=== PATIENT | female | born 1930 | race African-American/Black ===

== ENCOUNTER 2016-09-29 18:42 | Inpatient (IN) | payer OTHER ==
[~2016-09-29] VITALS: Ht 162.6 cm; Wt 88.0 kg
[~2016-09-29 18:42] MED LIST: ALLOPURINOL 30300 M2 PO; ATIVAN0.5 MG PO; AUGMENTIN 875875 MG PO; CARVEDILOL12.5 MG PO; COREG6.25 MG PO; ENOXAPARIN40 MG/0.1 SUBQ; HYDRALAZINE 10M10 MG PO; MAGOX 400400 MG PO; MS CONTIN15 MG PO; NEURONTIN 300300 M1 PO; NORCO 10-325 T1 EACH PO; PAIN RELIEVER500 M3 PO; PEPCID20 MG PO; SENNA8.6 MG; SYSTANE 0.3-0.1 EACH; TAMIFLU30 MG PO; TRAZODONE HCL50 MG PO; VITAMIN D250000 UNIT
[2016-09-29 18:43] VITALS: BP 228/107
[2016-09-29 19:55] LABS: ABSOLUTE NEUTROPHILS 4.4 thou/uL (1.4-8.2); BASOPHILS 1.3 % (0.0-2.0); EOSINOPHILS 0.8 % (0.0-3.0); HEMOGLOBIN 12.9 gm/dL (12.0-15.0); LYMPHOCYTES 13.8 % (24.0-44.0); MCH 31.4 pg (26.0-34.0); MCHC 33.9 g/dL (28.0-37.0); MCV 92.6 fL (80.0-100.0); MONOCYTES 7.3 % (1.0-8.0); PLATELET COUNT 224 thou/uL (150-400); POLYS 76.8 % (36.0-66.0); RDW 14.3 % (10.5-14.5); WBC 5.7 thou/uL (4.0-11.0)
[2016-09-29 19:59] LABS: MANUAL DIFF NO
[2016-09-29 20:07] LABS: CALCIUM 8.9 mg/dL (8.5-10.1); CREATININE 0.8 mg/dL (0.6-1.3); POTASSIUM 3.4 mmol/L (3.5-5.1)
[2016-09-29 20:11] LABS: ALBUMIN 3.1 g/dL (3.4-5.0); TOTAL BILIRUBIN 1.6 mg/dL (<0.1-1.0)
[2016-09-29 22:34] VITALS: BP 186/93
[2016-09-29 23:39] VITALS: BP 185/67
[2016-09-30 03:45] VITALS: BP 134/75
[2016-09-30 06:06] LABS: URINE BILIRUBIN NEGATIVE (Negative); URINE BLOOD NEGATIVE (Negative); URINE COLOR YELLOW; URINE GLUCOSE-RANDOM* NEGATIVE (Negative); URINE KETONES NEGATIVE (Negative); URINE NITRITE NEGATIVE (Negative); URINE PROTEIN (DIPSTICK) NEGATIVE (Negative); URINE SPECIFIC GRAVITY <= 1.005 (1.003-1.035); URINE UROBILINOGEN 0.2 E.U./dl (0.2-1.0)
[2016-09-30 06:06] LABS: ABSOLUTE NEUTROPHILS 4.9 thou/uL (1.4-8.2); BASOPHILS 0.9 % (0.0-2.0); EOSINOPHILS 0.6 % (0.0-3.0); HEMATOCRIT 35.6 % (37.0-47.0); HEMOGLOBIN 11.9 gm/dL (12.0-15.0); LYMPHOCYTES 19.1 % (24.0-44.0); MCH 31.3 pg (26.0-34.0); MCHC 33.5 g/dL (28.0-37.0); MCV 93.4 fL (80.0-100.0); MONOCYTES 10.9 % (1.0-8.0); PLATELET COUNT 205 thou/uL (150-400); POLYS 68.5 % (36.0-66.0); RBC 3.81 mil/uL (4.20-5.00); RDW 14.5 % (10.5-14.5); WBC 7.2 thou/uL (4.0-11.0)
[2016-09-30 06:11] LABS: MANUAL DIFF NO
[2016-09-30 06:22] LABS: ALBUMIN 2.6 g/dL (3.4-5.0); CALCIUM 8.5 mg/dL (8.5-10.1); CREATININE 0.9 mg/dL (0.6-1.3); MAGNESIUM 1.7 mg/dL (1.8-2.4); POTASSIUM 3.6 mmol/L (3.5-5.1); TOTAL BILIRUBIN 1.2 mg/dL (<0.1-1.0)
[2016-09-30 08:44] VITALS: BP 155/67
[2016-09-30 15:59] VITALS: BP 175/80
[2016-09-30 20:00] VITALS: BP 181/97
[2016-10-01 04:23] VITALS: BP 172/108
[2016-10-01 08:26] VITALS: BP 185/143
[2016-10-01 17:16] VITALS: BP 180/91
[2016-10-01 20:41] VITALS: BP 180/81
[2016-10-02 03:18] VITALS: BP 185/94
[2016-10-02 05:58] LABS: HEMATOCRIT 39.1 % (37.0-47.0); HEMOGLOBIN 13.2 gm/dL (12.0-15.0); MCH 31.5 pg (26.0-34.0); MCHC 33.8 g/dL (28.0-37.0); RBC 4.2 mil/uL (4.20-5.00); RDW 14.1 % (10.5-14.5); WBC 4.9 thou/uL (4.0-11.0)
[2016-10-02 06:21] LABS: CALCIUM 8.6 mg/dL (8.5-10.1); CREATININE 0.8 mg/dL (0.6-1.3)
[2016-10-02 07:17] VITALS: BP 179/89
[2016-10-02] MEDS ORDERED: VANCOMYCIN100 MG/ML PO (09:03)
[2016-10-02 12:03] VITALS: BP 157/68
== END 2016-10-02 18:20 | DRG 372 ==
LOC: ER 18:42 → 4W 21:53 → EROBS 21:53 → 4W 22:44
PROVIDERS: Family Medicine; Nurse Practitioner; Physician Assistant
DX: A04.7 Enterocolitis due to Clostridium difficile (principal); I16.1 Hypertensive emergency; E44.0 Moderate protein-calorie malnutrition; K75.9 Inflammatory liver disease, unspecified; K21.9 Gastro-esophageal reflux disease without esophagitis; M10.9 Gout, unspecified; F41.9 Anxiety disorder, unspecified; E78.5 Hyperlipidemia, unspecified; M19.90 Unspecified osteoarthritis, unspecified site; E87.6 Hypokalemia; R16.0 Hepatomegaly, not elsewhere classified; Z68.33 Body mass index [BMI] 33.0-33.9, adult; Z88.8 Allergy status to other drugs, medicaments and biological substances
CPT/HCPCS: 10045

== ENCOUNTER 2017-03-26 13:38 | Emergency (ER) | payer OTHER ==
[~2017-03-26] VITALS: Ht 172.7 cm; Wt 113.4 kg
--- NOTE | ~2017-03-26 | EKG ---
[address] [place] [address] ELECTROCARDIOGRAM REPORT Name: TERRA RED Room #: DEP KATHRYN Schmidt#: [id number] Admission: 03/26/17 Attend Phys: Discharge: 03/26/17 Date of : 28 Report #: [id number] THIS REPORT FOR: //name// [facility] ED Test Date: 2017-03-26 Test Time: 14:53:34 Pat Name: TERRA RED Department: Room: Gender: F It Consulting Director: [id number] : [id number] Requested By: Samm Armando Order Number: [id number] MD: Gideon Beltran Measurements Intervals [place] Rate: 75 P: -50 CO: 191 QRS: -50 QRSD: 80 T: -20 QT: 385 QTc: 430 Interpretive Statements Sinus rhythm Left anterior hemiblock Poor R wave progression Nonspecific T wave abnormality Compared to ECG 08/12/2016 16:36:57 No significant change was found Electronically Signed On 03-27-2017 8:23:51 CDT by Gideon Beltran [email or web address] <ELECTRONICALLY SIGNED> By: Gideon Beltran MD, [facility] 03/27/17 0823 1453 145 Gideon Beltran MD, [facility] /EPI
[~2017-03-26 13:38] MED LIST changes: +VANCOMYCIN100 MG/ML PO
[2017-03-26 15:28] LABS: HEMATOCRIT 35.9 % (37.0-47.0); HEMOGLOBIN 12.2 gm/dL (12.0-15.0); MCH 31.6 pg (26.0-34.0); MCHC 34.1 g/dL (28.0-37.0); MCV 92.9 fL (80.0-100.0); PLATELET COUNT 291 thou/uL (150-400); RBC 3.87 mil/uL (4.20-5.00); RDW 14.7 % (10.5-14.5); WBC 9.1 thou/uL (4.0-11.0)
[2017-03-26 15:32] LABS: MANUAL DIFF YES
[2017-03-26 15:38] LABS: ANION GAP 8 mmol/L (7-16); BUN 12 mg/dL (7-18); CALCIUM 8.9 mg/dL (8.5-10.1); CHLORIDE 99 mmol/L (98-107); CO2 24 mmol/L (21-32); CREATININE 0.7 mg/dL (0.6-1.0); GLUCOSE 108 mg/dL (74-106); POTASSIUM 5.1 mmol/L (3.5-5.1); SODIUM 131 mmol/L (136-145)
[2017-03-26 16:09] LABS: ABSOLUTE NEUTROPHILS 5.8 thou/uL (1.4-8.2); POLYCHROMASIA 1+; TOTAL CELL COUNT 100
[2017-03-26 16:10] LABS: TARGET CELLS 1+
[2017-03-26 16:11] LABS: TOTAL BILIRUBIN 4.4 mg/dL (<0.1-1.0)
[2017-03-26 16:12] LABS: ALBUMIN 2.4 g/dL (3.4-5.0); TOTAL PROTEIN 8.3 g/dL (6.4-8.2); TROPONIN-I < 0.04 ng/mL (<0.04-0.07)
[2017-03-26 16:13] LABS: ALKALINE PHOSPHATASE 213 U/L (46-116); SGOT 709 U/L (15-37); SGPT 309 U/L (30-65)
[2017-03-26 16:21] LABS: URINE BILIRUBIN 2+ (Negative); URINE BLOOD NEGATIVE (Negative); URINE COLOR ORANGE; URINE GLUCOSE-RANDOM* NEGATIVE (Negative); URINE KETONES NEGATIVE (Negative); URINE PROTEIN (DIPSTICK) TRACE (Negative); URINE UROBILINOGEN >= 8.0 E.U./dl (0.2-1.0)
[2017-03-26 16:25] LABS: ICTOTEST (BILI CONFIRMATORY) Positive (Negative); URINE LEUKOCYTES-REFLEX TRACE (Negative)
== END 2017-03-26 17:51 ==
LOC: ER 13:38
PROVIDERS: Emergency Medicine
DX: C78.7 Secondary malignant neoplasm of liver and intrahepatic bile duct (principal); C79.51 Secondary malignant neoplasm of bone; I10 Essential (primary) hypertension; K21.9 Gastro-esophageal reflux disease without esophagitis; F41.9 Anxiety disorder, unspecified; E78.00 Pure hypercholesterolemia, unspecified; M19.90 Unspecified osteoarthritis, unspecified site; G89.29 Other chronic pain; Z88.6 Allergy status to analgesic agent